=== PATIENT | female | born 1950 | race Caucasian/White ===

== ENCOUNTER 2023-12-24 12:29 | Emergency (ER) | payer MEDICARE, SELFPAY ==
--- NOTE | 2023-12-24 13:28 | ED.MUSCINJ ---
HPI-Injury
General
Chief Complaint: Musculo-Skeletal Complaint
Source: patient and significant other
Exam Limitations: none
Time Seen by Provider: 12/24/23 13:07
Nursing documentation reviewed up to this point in time: agreed with
Travel History
Have you had any contact with someone who has COVID-19?: No
Do you have any symptoms of coronavirus? Fever > 100 degrees, chills, cough, shortness of breath, sore throat, loss of taste or smell, muscle aches, or headache?: No
History of Present Illness-Injury
Is this injury a work related problem?: No
Is pt an associate of [facility]?: No
Initial Injury comments:
Patient is a 73-year-old female with past medical history of hypertension, hyperlipidemia, diabetes, COPD, who presents to the emergency department accompanied by her for evaluation of pain over her tailbone and right upper arm. Patient
reports that 4 days ago, she was walking and accidentally struck her back against a ledge that was made of concrete on the wall. Patient denies that she fell to the ground. Patient reports that she has had pain over the center of her tailbone ever
since. Patient denies any radiation of the pain down her legs. Patient denies any numbness, weakness, tingling of her legs. Patient denies any bowel or bladder dysfunction, denies any saddle anesthesia. Patient reports she has been taking
ibuprofen 200 mg twice daily without significant improvement in her symptoms. Patient denies any other injuries were sustained at the time.
In addition, patient reports that on the same day she was walking her dog and her dog pulled his leash. Patient reports that her right arm got tweaked in the process and she has pain in her right upper arm, near her shoulder. Patient reports that
she is able to move the shoulder but has pain with certain movements such as reaching for something overhead on a high shelf in her kitchen. Patient notes that she is right-hand dominant. Patient denies previous injury to this extremity. Patient
denies any numbness, weakness, tingling of his arm, hand, fingers.
Review of Systems
Review of Systems
Allergies reviewed?: Yes
All Other Systems: ROS reviewed and negative except as documented in HPI and ROS
Constitutional: Reports no symptoms
EENT: Reports no symptoms
Respiratory: Reports no symptoms
Cardiac: Reports no symptoms
ABD/GI: Reports no symptoms
: Reports no symptoms
Musculoskeletal: Reports other (tailbone pain, right upper extremity pain)
Skin: Reports no symptoms
Neurological: Reports no symptoms
Endocrine: Reports no symptoms
Hematologic/Lymphatic: Reports no symptoms
Psychiatric: Reports no symptoms
Phy Exam
General Physical Exam
General Presentation: well appearing and no apparent distress
General Skin: warm and dry
General Habitus: normal
General Mental: alert
General Hydration: appears well hydrated
ENT Exam
ENT Exam: EOMI, pharynx normal, neck supple and normocephalic
Eye Exam
Eye Exam: PERRL, cornea clear and conjunctiva normal
Cardiovascular Exam
Cardiovascular Exam: regular rate/rhythm, no edema, no murmur and normal peripheral pulses
Pulmonary Exam
Pulmonary Exam: lungs clear, no respiratory distress, no rales, no crackles, no rhonchi, no stridor, no wheezing and no cough
Neurological Exam
Neurological Exam: alert, oriented x3, no motor deficits and speech normal
Musculoskeletal Exam
Musculoskeletal Exam: other ((+) ttp over midline of the sacrum/coccyx, no ttp to the remainder of the cervical, thoracic, or lumbar spine, ambulating with a steady gait/without difficulty, RUE: No deformity, no ecchymosis or skin changes, no ttp
over the clavicle, (+) ttp over the proximal humerus with FROM, 2+ radial pulses)
Skin Exam
Skin Exam: normal color, warm/dry, no rash and no petechia
Psychiatric Exam
Psychiatric Exam: normal mood/affect
Injury Course
Orders/Labs/Results
Orders:
Orders
12/24/23 13:16
Coccyx/Sacrum, 2 View CR [CR Sacrum/coccyx Min 2 View] Urgent
Comment:
Reason For Exam: tailbone pain, struck it against a concrete wall
12/24/23 13:21
Humerus, Right 2 Views [CR Humerus - Right Min 2 View*] Urgent
Comment:
Reason For Exam: right upper arm pain s/p pulled by dog leash
Shoulder, Right, Trauma [CR Shoulder, Trauma - Right] Urgent
Comment:
Reason For Exam: right shoulder pain s/p pulled by dog
*Critical Care Note
Total Time (30-74mins, 75-104mins- exclusive of procedures): Not Applicable
Update Note
Update Note:
73 yo female yo female presents with pain over the tailbone after accidentally hitting it against something on the wall, as well as right upper extremity pain after walking her dog and he pulled the leash. On arrival, pt is moderately hypertensive,
afebrile. On exam, pt is well-appearing and in NAD, she is ambulating without difficulty and with a steady gait, she has FROM of the shoulder and is neurovascularly intact. Radiographs of the sacrum and coccyx demonstrate no bony injury.
Radiographs of the right shoulder and upper arm also demonstrate no bony abnormality. Patient likely with a coccyx contusion and a strain of her right arm. Patient is safe for discharge to home. Patient was educated on supportive care, need for
outpatient PCP follow-up to ensure resolution of her symptoms, along with return precautions. Patient and her significant other expressed understanding of the plan and agreed.
ED Attending Note
-
Portions of this chart may have been created with voice recognition software.� Occasional wrong word or��sound alike� substitutions may have occurred due to the inherent limitations of voice recognition software.
Discharge Plan
Departure
Patient Disposition: Home (Routine Discharge)
Date of Disposition: 12/24/23
Time of Disposition: 15:17
Patient with high blood pressure during this ER visit?: No
Condition: Good
Covid-19: Not Applicable
Discharge Problem:
Pain in right upper arm, Contusion of coccyx
Instructions: Coccyx Injury (DC), Musculoskeletal Pain
Prescriptions:
No Action
metformin 1,000 mg Tablet
1,000 mg PO BID
escitalopram oxalate [Lexapro] 20 mg Tablet
20 mg PO DAILY
trospium 60 mg Capsule,Extended Release 24hr
60 mg PO DAILY
Rx Instructions:
must be taken on empty stomach at least 1 hour before a meal/food with water only
nebivolol [Bystolic] 5 mg Tablet
5 mg PO DAILY
Myrbetriq 25 mg Tablet Extended Release 24 Hr
25 mg PO DAILY
Anoro Ellipta 62.5-25 mcg/actuation Blister With Device
1 inh INHALATION DAILY
Sutab 1.479-0.188- 0.225 gram Tablet
0 tab PO PER PKG DIR
Referrals:
Gela Jeong CRNP [Family Provider] - Follow up in 1 week
Activity Restrictions/Additional Instructions:
You were seen in the emergency department for evaluation of an injury to your tailbone. X-rays do not show any broken or dislocated bones. You may alternate ice and heat to the affected areas for 20 minutes at a time 4-5 times a day. You may take
ibuprofen 600 mg every 6 hours and/or Tylenol 650 mg every 4-6 hours, not to exceed 3000 mg in a 24-hour period as needed for pain. In addition, you noted pain over your right upper arm. X-rays do not show any broken or dislocated bones. You may
use ice to the area for 20 minutes at a time 4-5 times a day. Ibuprofen and Tylenol will help with this pain as well. Please follow-up with your primary care provider if your pain persist. Please return to the emergency department for severe
pain, swelling, numbness, weakness, tingling of one or more of your extremities, or for any other worsening or concerning symptoms.
Interventions
Interventions:
*Risk Screen - Suicide Last Done: 12/24/23 13:35
*General Assessment Last Done: 12/24/23 13:35
*Neglect/Abuse Screening Last Done: 12/24/23 13:35
*Nursing Disposition Last Done: 12/24/23 15:37
ED-Musculoskeletal Assessment Last Done: 12/24/23 13:35
Discharge Date and Time
Discharge Date/Time: 12/24/23 15:38
[2023-12-24 15:36] VITALS: BP 158/68
== END 2023-12-24 15:38 | disposition home or self-care (01) ==
LOC: EMR 12:29
PROVIDERS: EMERGENCY PHYSICIAN Emergency Medicine; FAMILY PHYSICIAN Nurse Practitioner Adult Health
DX: M79.621 Pain in right upper arm (principal); S30.0XXA Contusion of lower back and pelvis, initial encounter; W22.01XA Walked into wall, initial encounter; X50.0XXA Overexertion from strenuous movement or load, initial encounter; I10 Essential (primary) hypertension; E78.5 Hyperlipidemia, unspecified; E11.9 Type 2 diabetes mellitus without complications; J44.9 Chronic obstructive pulmonary disease, unspecified
CPT/HCPCS: 99283; 72220; 73030; 73060

== ENCOUNTER → 2024-03-27 10:26 | Outpatient (REF) | payer MEDICARE, SELFPAY | LOC: RAD 10:26 | PROVIDERS: ATTENDING PHYSICIAN Nurse Practitioner Adult Health | DX: M54.41 Lumbago with sciatica, right side (principal); M25.551 Pain in right hip | CPT/HCPCS: 72110; 73502 ==

== ENCOUNTER 2024-04-13 09:03 | Outpatient (RCR) | payer MEDICARE, SELFPAY | END 2024-04-13 23:59 | disposition home or self-care (01) | LOC: RPT 09:03 | PROVIDERS: ATTENDING PHYSICIAN Nurse Practitioner Adult Health | DX: M54.41 Lumbago with sciatica, right side (principal); M25.551 Pain in right hip; Z73.6 Limitation of activities due to disability; R26.89 Other abnormalities of gait and mobility | CPT/HCPCS: 97010; 97110; 97162 ==

== ENCOUNTER 2024-05-05 09:01 | Outpatient (RCR) | payer MEDICARE, SELFPAY | END 2024-05-05 13:34 | disposition home or self-care (01) | LOC: RPT 09:01 | PROVIDERS: ATTENDING PHYSICIAN Nurse Practitioner Adult Health | DX: M54.41 Lumbago with sciatica, right side (principal); M25.551 Pain in right hip; Z73.6 Limitation of activities due to disability; R26.89 Other abnormalities of gait and mobility | CPT/HCPCS: 97010; 97110 ==

== ENCOUNTER 2024-07-10 06:30 | Day surgery (SDC) | payer MEDICARE, SELFPAY ==
[2024-07-10 11:25] VITALS: BP 143/76; BMI 39.8
[2024-07-10 11:39] LABS: Glucose - Point of Care 93 mg/dl (70-99)
[2024-07-10 11:41] VITALS: BMI 39.8
[2024-07-10 12:56] VITALS: BP 97/70
[2024-07-10 13:00] VITALS: BP 81/60
[2024-07-10 13:04] LABS: Glucose - Point of Care 90 mg/dl (70-99)
[2024-07-10 13:16] VITALS: BP 106/82
[2024-07-10 13:30] VITALS: BP 141/55
== END 2024-07-10 13:35 | disposition home or self-care (01) ==
LOC: GI 06:30
PROVIDERS: ATTENDING PHYSICIAN Internal Medicine Gastroenterology
DX: K64.8 Other hemorrhoids (principal)
CPT/HCPCS: 45330; 82962

== ENCOUNTER 2024-07-20 06:39 | Outpatient (RCR) | payer MEDICARE, SELFPAY | END 2024-07-20 23:59 | disposition home or self-care (01) | LOC: RPT 06:39 | PROVIDERS: ATTENDING PHYSICIAN Student in an Organized Health Care Education/Training Program; FAMILY PHYSICIAN Nurse Practitioner Adult Health | DX: M17.0 Bilateral primary osteoarthritis of knee (principal); Z73.6 Limitation of activities due to disability; R26.89 Other abnormalities of gait and mobility; M25.562 Pain in left knee; M25.561 Pain in right knee | CPT/HCPCS: 97110; 97162 ==

== ENCOUNTER 2024-08-12 08:59 | Outpatient (RCR) | payer MEDICARE, SELFPAY | END 2024-08-12 23:59 | disposition home or self-care (01) | LOC: RPT 08:59 | PROVIDERS: ATTENDING PHYSICIAN Student in an Organized Health Care Education/Training Program; FAMILY PHYSICIAN Nurse Practitioner Adult Health | DX: M17.0 Bilateral primary osteoarthritis of knee (principal); Z73.6 Limitation of activities due to disability | CPT/HCPCS: 97010; 97110 ==

== ENCOUNTER → 2024-08-12 12:30 | Outpatient (REF) | payer MEDICARE, SELFPAY ==
[2024-08-12 12:59] LABS: % Basophils 0.5 % (0-2); % Eosinophils 3.6 % (0-6); % Immature Granulocytes 0.4 % (0-0.5); % Lymphocytes 19.5 % (20.5-51.1); % Monocytes 7.5 % (1.7-9.3); % Neutrophils 68.5 % (42.2-75.2); Absolute Basophils 0.1 10^3/uL (0-0.2); Absolute Eosinophils 0.4 10^3/uL (0-0.7); Absolute Lymphocytes 2.2 10^3/uL (1.2-3.4); Absolute Monocytes 0.9 10^3/uL (0.1-0.6); Absolute Neutrophils 7.7 10^3/uL (1.4-6.5); Hematocrit 40.5 % (37.0-47.0); Hemoglobin 13.9 g/dL (12.0-16.0); Mean Corp Hgb Conc. 34.3 g/dL (33.0-37.0); Mean Corpuscular Hgb 30.6 pg (27.0-31.0); Mean Corpuscular Volume 89.2 fL (81.0-99.0); Nucleated Red Blood Cells % 0 %; Platelet Count 175 10^3/uL (130-400); Red Blood Cell Count 4.54 10^6/uL (4.20-5.40); Red Cell Dist. Width 14.7 % (11.5-14.5); White Blood Cell Count 11.3 10^3/uL (4.8-10.8)
[2024-08-12 13:02] LABS: INR 1.12; PT 14.4 Sec (11.4-14.6)
[2024-08-12 13:03] LABS: APTT 36.9 Sec (23.4-35.0)
[2024-08-12 13:15] LABS: ALT (SGPT) 37 U/L (0-35); AST (SGOT) 44 U/L (14-36); Albumin 4.3 g/dl (3.5-5.0); Alkaline Phosphatase 110 U/L (38-126); Blood Urea Nitrogen 14 mg/dl (7-17); Calcium 9.9 mg/dl (8.4-10.2); Carbon Dioxide 28 mmol/L (22-30); Chloride 103 mmol/L (98-107); Glucose 90 mg/dl (70-99); Potassium 4.4 mmol/L (3.5-5.1); Sodium 141 mmol/L (135-145); Total Bilirubin 1.1 mg/dl (0.2-1.3); Total Protein 7.3 g/dl (6.3-8.2); eGFR > 60.00
[2024-08-12 13:59] LABS: Erythrocyte Sed Rate 26 mm/hour (0-20)
== END ==
LOC: REG 12:30
PROVIDERS: ATTENDING PHYSICIAN Registered Nurse Ambulatory Care
DX: T14.8XXA Other injury of unspecified body region, initial encounter (principal)
CPT/HCPCS: 36415; 80053; 85025; 85610; 85652; 85730; 86140

== ENCOUNTER 2024-09-08 14:01 | Outpatient (RCR) | payer MEDICARE, SELFPAY | END 2024-09-08 15:34 | disposition home or self-care (01) | LOC: RPT 14:01 | PROVIDERS: ATTENDING PHYSICIAN Student in an Organized Health Care Education/Training Program; FAMILY PHYSICIAN Nurse Practitioner Adult Health | DX: M17.0 Bilateral primary osteoarthritis of knee (principal) | CPT/HCPCS: 97110 ==

== ENCOUNTER → 2024-09-10 07:19 | Outpatient (REF) | payer MEDICARE, SELFPAY | LOC: HWRAD 07:19 | PROVIDERS: ATTENDING PHYSICIAN Registered Nurse Ambulatory Care; FAMILY PHYSICIAN Nurse Practitioner Adult Health | DX: R79.1 Abnormal coagulation profile (principal); R74.01 Elevation of levels of liver transaminase levels; R23.3 Spontaneous ecchymoses | CPT/HCPCS: 76700 ==

== ENCOUNTER → 2025-02-03 09:49 | Outpatient (REF) | payer MEDICARE, SELFPAY | LOC: MRI 3T 09:49 | PROVIDERS: ATTENDING PHYSICIAN Registered Nurse Ambulatory Care; REFERRING PHYSICIAN Radiology Diagnostic Radiology | DX: R16.0 Hepatomegaly, not elsewhere classified (principal) | CPT/HCPCS: 74183; A9575 ==

== ENCOUNTER 2025-03-05 12:02 | Emergency (ER) | payer MEDICARE, SELFPAY ==
[2025-03-05] VITALS (7 sets, daily range): BP systolic 93–158; BP diastolic 74–96; BMI 40.0
[2025-03-05 12:49] LABS: % Eosinophils 2.2 % (0-6); % Immature Granulocytes 0.4 % (0-0.5); % Lymphocytes 15.4 % (20.5-51.1); % Monocytes 7.5 % (1.7-9.3); % Neutrophils 73.5 % (42.2-75.2); Absolute Basophils 0.1 10^3/uL (0-0.2); Absolute Eosinophils 0.2 10^3/uL (0-0.7); Absolute Lymphocytes 1.5 10^3/uL (1.2-3.4); Absolute Monocytes 0.7 10^3/uL (0.1-0.6); Absolute Neutrophils 6.9 10^3/uL (1.4-6.5); Hematocrit 42.5 % (37.0-47.0); Hemoglobin 14.7 g/dL (12.0-16.0); Mean Corp Hgb Conc. 34.6 g/dL (33.0-37.0); Mean Corpuscular Volume 86.7 fL (81.0-99.0); Mean Platelet Volume 10.2 fL (7.4-10.4); Nucleated Red Blood Cells % 0 %; Platelet Count 192 10^3/uL (130-400); Red Cell Dist. Width 15.3 % (11.5-14.5); White Blood Cell Count 9.4 10^3/uL (4.8-10.8)
[2025-03-05 13:03] LABS: ALT (SGPT) 30 U/L (0-35); AST (SGOT) 39 U/L (14-36); Albumin 4.1 g/dl (3.5-5.0); Alkaline Phosphatase 88 U/L (38-126); Blood Urea Nitrogen 9 mg/dl (7-17); Calcium 9.5 mg/dl (8.4-10.2); Carbon Dioxide 23 mmol/L (22-30); Chloride 109 mmol/L (98-107); Estimated Creatinine Clearance 84 ml/min; Glucose 124 mg/dl (70-99); Lipase 56 U/L (23-300); Potassium 4.4 mmol/L (3.5-5.1); Sodium 140 mmol/L (135-145); Total Bilirubin 1.3 mg/dl (0.2-1.3); Total Protein 7.6 g/dl (6.3-8.2); eGFR > 60.00
[2025-03-05 13:14] LABS: Troponin I < 0.012 ng/ml
--- NOTE | 2025-03-05 13:31 | ED.GENMED ---
History of Present Illness
General
Chief Complaint: Chest Pain
Source: patient
Exam Limitations: none
Time Seen by Provider: 03/05/25 12:50
Nursing documentation reviewed up to this point in time: agreed with
History of Present Illness
History of Present Illness:
Patient is a 74 yr old female with past medical history of COPD hypertension diabetes radioembolization of liver tumor who presents to the ER for evaluation. Patient reports she had an episode of chest tightness last night around 11 PM. she took
an antiacid though it did not really help. she still was however still able to sleep. She does report she had a slice of pizza prior to the discomfort starting. This morning she has had intermittent chest tightness which is what prompted her to
come to the ER. She reports chest tightness in the center of her chest. She has had very little shortness of breath with episode. She does report she had a similar episode of chest discomfort about 1 month ago. She did take an antiacid at that
time which relieved her symptoms .
Patient does report that the night prior she vomited but she was not sure if this was reflux.
Review of Systems
Review of Systems
Allergies reviewed?: Yes
All Other Systems: ROS reviewed and negative except as documented in HPI and ROS
Constitutional: Reports no symptoms; Denies fever, fatigue or chills
EENT: Reports no symptoms
Cardiac: Reports chest pain
ABD/GI: Reports no symptoms
: Reports no symptoms
Musculoskeletal: Reports no symptoms
Skin: Reports no symptoms
Neurological: Reports no symptoms
Psychiatric: Reports no symptoms
Phy Exam
General Physical Exam
General Presentation: no apparent distress
General age: appears stated age
General Skin: warm and dry
General Habitus: normal
General Mental: alert
General Hydration: appears well hydrated
Cardiovascular Exam
Cardiovascular Exam: regular rate/rhythm, no murmur and normal peripheral pulses
Pulmonary Exam
Pulmonary Exam: lungs clear and no respiratory distress
Gastrointestinal Exam
Gastrointestinal Exam: normal bowel sounds, non tender and soft
Neurological Exam
Neurological Exam: alert and oriented x3
Scores
Heart Score for Chest Pain Patients
STEMI patient?: Not applicable
Course
Orders/Labs/Results
Orders:
Orders
03/05/25 12:03
Electrocardiogram (*1) Urgent
Reason for Study: Chest Pain
EKG- Treatment ONCE
03/05/25 12:36
Complete Blood Count/With Diff Urgent
Comprehensive Metabolic Panel Urgent
Lipase Urgent
Troponin I Urgent
03/05/25 13:50
EKG- Treatment ONCE
03/05/25 14:32
Chest [CR Chest - 2 Views ] Urgent
Comment:
Reason For Exam: cp
03/05/25 15:30
EKG [Electrocardiogram (*1)] Urgent
Reason for Study: Chest Pain
03/05/25 15:35
Troponin I Urgent
03/05/25 16:44
Mag Hydrox/Al Hydrox/Simeth [Maalox] 30 ml Phenobarb/Hyoscy/Atropine/Scop [] 10 ml PO NOW
03/05/25 17:10
Mag Hydrox/Al Hydrox/Simeth [Maalox] 30 ml .ROUTE .STK-MED ONE
Phenobarb/Hyoscy/Atropine/Scop [] 10 ml .ROUTE .STK-MED ONE
Abnormal Lab Results
03/05/25
12:36
RDW 15.3 H %
(11.5-14.5)
Absolute Neuts (auto) 6.9 H 10^3/uL
(1.4-6.5)
Absolute Monos (auto) 0.7 H 10^3/uL
(0.1-0.6)
Lymphocytes % 15.4 L %
(20.5-51.1)
Chloride 109 H mmol/L
(98-107)
Creatinine 0.4 L mg/dL
(0.6-1.0)
Glucose 124 H mg/dl
(70-99)
AST 39 H U/L
(14-36)
03/05/25 12:36
03/05/25 12:36
Vital Signs
Initial and Last Documented VS:
Initial Vital Signs
Temp Pulse Resp Pulse Ox
97.8 F 74 18 93
03/05/25 12:10 03/05/25 12:10 03/05/25 12:10 03/05/25 12:10
Last Documented Vital Signs
Temp Pulse Resp BP Pulse Ox
97.8 F 70 29 158/96 96
03/05/25 12:10 03/05/25 17:00 03/05/25 17:00 03/05/25 17:00 03/05/25 17:00
MDM/Problems Addressed
MDM/Problems Addressed:
Patient is a 74-year-old with no past medical history of cardiac disease who presented with chest discomfort. She vomited 2 nights ago and then last night after eating a slice of pizza started with this chest tightness. Antacids did not relieve
her symptoms with this episode though she had symptoms previously that were relieved with antiacid. She presents here awake alert no acute distress she did feel little short of breath with it. Patient was monitored here and had 2 negative cardiac
troponins and unremarkable EKGs. She reports discomfort was very minimal and she was given a GI cocktail she does feel like is starting to improve. She has no acute distress and very well-appearing nontachycardic nonhypoxic stable.
With patient's age will still place on chest pain hotline however likely that this may also be reflux. Will send prescription for Protonix to patient's pharmacy. She is requesting to see Dr. Roberts's practice as her goes there.
*Radiology
Radiology exam reviewed: radiology read reviewed
*Pulse Oximetry
Patient hypoxic: no
*EKG
Interpreted by ED Provider?: Yes
Heart Rate: 69
Rate: normal
Rhythm: sinus
QRS Pattern: normal QRS
Ischemia: other (repeat ekg unchanged )
*Critical Care Note
Total Time (30-74mins, 75-104mins- exclusive of procedures): Not Applicable
ED Attending Note
-
Portions of this chart may have been created with voice recognition software.� Occasional wrong word or��sound alike� substitutions may have occurred due to the inherent limitations of voice recognition software.
Discharge Plan
Departure
Patient Disposition: Home (Routine Discharge)
Date of Disposition: 03/05/25
Time of Disposition: 17:59
Patient with high blood pressure during this ER visit?: Yes
Condition: Fair
Covid-19: Not Applicable
Discharge Problem:
Chest pain
Instructions: Chest Pain DCA Follow Up, BLOOD PRESSURE
Prescriptions:
New
pantoprazole [Protonix] 40 mg tablet,delayed release (DR/EC)
40 mg PO DAILY Qty: 14 0RF
No Action
metformin 1,000 mg Tablet
1,000 mg PO BID
nebivolol [Bystolic] 5 mg Tablet
5 mg PO DAILY
Anoro Ellipta 62.5-25 mcg/actuation Blister With Device
1 inh INHALATION DAILY
albuterol 90 mcg/actuation Aerosol
INHALATION Q6H PRN (Reason: SOB)
trazodone 50 mg Tablet
25 mg PO HS PRN (Reason: unable to sleep)
sertraline
100 mg PO DAILY
Digest Adv Probio Plus Gas 2 billion cell Capsule
3 cap PO TID
Referrals:
Gela Jeong CRNP [Family Provider] -
Brunilda Roberts, [Active] -
Activity Restrictions/Additional Instructions:
As discussed please follow up with cardiology
You were placed on the chest pain hotline and you receive a phone call in the next several days. If you do not please call the office to schedule an appointment for reevaluation as soon as possible.
in addition as discussed, this may be more of reflux causing your symptoms and a prescription for Protonix was sent to your pharmacy. please take as directed .avoid spicy foods avoid caffeine chocolate etc. Return if any worsening of symptoms.
Follow-up with your PCP and if needed your GI specialist.
Interventions
Interventions:
*Risk Screen - Suicide Last Done: 03/05/25 13:33
*General Assessment Last Done: 03/05/25 13:32
*Neglect/Abuse Screening Last Done: 03/05/25 13:33
*ED- Fall Risk Assessment Last Done: 03/05/25 13:32
*ED COVID-19 Vaccine History Last Done: 03/05/25 13:32
ED- Cardiac Assessment Last Done: 03/05/25 13:36
Discharge Date and Time
Print Language: CHILEAN
--- NOTE | 2025-03-05 13:33 | EDRN ---
Shreya Toure Psychology Assistant in room w/ pt. Pt has had off and on tightness but had a month ago and antacid took in away, pt had vertigo the night before last and tightness in her chest last night. Pt states 'just felt tight' at 22-23:00. Pt took antacid and did
not change pain but pt did fall asleep. Tightness in epigastric area.
--- NOTE | 2025-03-05 14:05 | EDRN ---
Pt OOB to [facility] and back. Pt replaced on rn cardiac rehab.
[2025-03-05 16:10] LABS: Troponin I < 0.012 ng/ml
[2025-03-05] MEDS: MAALOX 40 PO (17:13)
--- NOTE | 2025-03-05 17:16 | EDRN ---
Pt denies and pain at this time, stating it is intermittent.
== END 2025-03-05 18:17 | disposition home or self-care (01) ==
LOC: EMR 12:02
PROVIDERS: Emergency Medicine; Nurse Practitioner; EMERGENCY PHYSICIAN Emergency Medicine; FAMILY PHYSICIAN Nurse Practitioner Adult Health
DX: R07.89 Other chest pain (principal); J44.9 Chronic obstructive pulmonary disease, unspecified; I10 Essential (primary) hypertension; E11.9 Type 2 diabetes mellitus without complications
CPT/HCPCS: 99285; 71046; 80053; 83690; 84484; 85025; 93005

== ENCOUNTER → 2025-05-26 12:51 | Outpatient (REF) | payer MEDICARE, SELFPAY | LOC: RAD 12:51 | PROVIDERS: ATTENDING PHYSICIAN Internal Medicine Cardiovascular Disease; FAMILY PHYSICIAN Nurse Practitioner Adult Health | DX: R09.89 Other specified symptoms and signs involving the circulatory and respiratory systems (principal) | CPT/HCPCS: 93880 ==

== ENCOUNTER → 2025-05-31 13:51 | Outpatient (REF) | payer MEDICARE, SELFPAY | LOC: RCS 13:51 | PROVIDERS: ATTENDING PHYSICIAN Internal Medicine Cardiovascular Disease; FAMILY PHYSICIAN Nurse Practitioner Adult Health | DX: I10 Essential (primary) hypertension (principal); R01.1 Cardiac murmur, unspecified; R09.89 Other specified symptoms and signs involving the circulatory and respiratory systems; R07.89 Other chest pain; Z82.49 Family history of ischemic heart disease and other diseases of the circulatory system | CPT/HCPCS: 93306 ==